=== PATIENT | female | born 1965 | race Caucasian/White ===

== ENCOUNTER → 2017-03-09 | Outpatient (CLI) | payer OTHER ==
[~2017-03-09] MED LIST: GADOBUTROL 10 ML VIAL IVP ONE
== END ==
LOC: FIMAGING 07:58
PROVIDERS: ATTEND Internal Medicine Gastroenterology
DX: Z03.89 Encounter for observation for other suspected diseases and conditions ruled out (principal)
CPT/HCPCS: A9585

== ENCOUNTER 2017-07-01 17:37 | Emergency (ER) | payer OTHER ==
--- NOTE | 2017-07-01 18:44 | EDPHY ---
H & P Time Seen by Provider: 07/01/17 18:08 HPI/ROS: CHIEF COMPLAINT: "Allergic reaction" HISTORY OF PRESENT ILLNESS: The patient is a 51-year-old female with significant autoimmune disorder who presents to the emergency department with reported reaction to IGG. The patient normally receives an infusion every 3 weeks. Patient states she underwent an infusion of IGG yesterday and had been roughly 5-6 weeks. About 15 minutes after the infusion she developed chills. Her fever went to 101.4. She developed significant diffuse body aches. She took ibuprofen and her symptoms improved. This afternoon she developed a rash around her neck and face. She again developed chills and body aches. She called the nurse for her [place] program [place] who told her come to the emergency department for evaluation. She denies any chest pain or shortness of breath. No nausea or vomiting. No dysuria or frequency. Patient has that she has recently been treated for herpes infection in her mouth and eye. She saw Dr. Dent who recommended treatment with acyclovir. Since that time she has been feeling "crummy." The patient also states that she has an appointment with Dr. Rodgers tomorrow. REVIEW OF SYSTEMS: My complete review of systems is negative except as mentioned in the HPI. Past Medical/Surgical History: Includes autoimmune disorder, pancreatitis, kidney stones, traumatic brain injury Social history: The patient is here with her who is an orthopedic surgeon, Dr. Elizabeth. Smoking Status: Never smoked Physical Exam: Vitals noted. 37.5, 146/86, 60, 20, 95% on room air GENERAL: Well-appearing, in no acute distress, alert. HEENT: Eyes normal to inspection, normal pharynx, no signs of dehydration. No discharge NECK: No thyromegaly, no lymphadenopathy, supple. RESPIRATORY: Clear to auscultation bilaterally, no rales, rhonchi or wheezing. CVS: Regular rate and rhythm, no rubs, murmurs, or gallops. ABDOMEN: Soft, nontender, nondistended, no organomegaly. BACK: Normal to inspection, no CVA tenderness. SKIN: Patient has an erythematous rash around her neck and anterior chest. She is mildly erythematous face. It is nontender to touch. There are no visible ulcerations. No hives. Warm, dry. No pallor. EXTREMITIES: No pedal edema, no calf tenderness, no Homans sign or cords, no joint swelling. NEURO/PSYCH: Alert and oriented, normal mood and affect, normal motor sensory exam. No obvious cranial nerve deficit. Constitutional: Initial Vital Signs Temperature (C) 37.5 C 07/01/17 17:52 Heart Rate 60 07/01/17 17:52 Respiratory Rate 20 07/01/17 17:52 Blood Pressure 146/86 H 07/01/17 17:52 O2 Sat (%) 95 07/01/17 17:52 O2 Delivery Mode Room Air Allergies/Adverse Reactions: seasonal Allergy (Intermediate, Uncoded 07/01/17 17:51) hayfever Home Medications: Medication Instructions Recorded Levothyroxine [Synthroid 112 mcg 112 mcg PO DAILY06 06/21/12 (RX)] Liothyronine Sodium [Cytomel 5 mcg 5 mcg PO DAILY 06/21/12 (RX)] Propranolol HCl [Inderal 10mg (RX)] 10 - 20 mg PO TID PRN 06/21/12 lamoTRIgine [LamICTAL 100 MG (RX)] 300 mg PO BID 06/21/12 Medical Decision Making ED Course/Re-evaluation: In the emergency department I discussed possible etiologies with the patient and her . I answered all her questions. IV was placed. Laboratory studies including cultures were obtained. Patient does not have any respiratory symptoms. I do not feel she needed a chest x-ray. CBC, chemistry and LFTs were normal. I discussed the results with the patient. I answered all her questions. 2010: I rechecked the patient is doing well. No worsening rash. No shortness of breath. The patient feels comfortable with discharge. She will return with worsening symptoms. She was given warnings prior to leaving. She has an appointment with Dr. Rodgers tomorrow. Differential Diagnosis: My differential includes but is not limited to allergic reaction, autoimmune disorder, herpes infection, bacteremia, sepsis - Data Points Laboratory Results: Laboratory Results 07/01/17 18:55 07/01/17 18:55 07/01/17 07/01/17 07/01/17 19:43 18:55 18:55 WBC RBC Hgb Hct MCV MCH MCHC RDW Plt Count MPV Neut % (Auto) Lymph % (Auto) [place] % (Auto) Eos % (Auto) Baso % (Auto) Nucleat RBC Rel Count Absolute Neuts (auto) Absolute Lymphs (auto) Absolute Monos (auto) Absolute Eos (auto) Absolute Basos (auto) Absolute Nucleated RBC Immature Gran % Immature Gran # PT 13.2 SEC SEC (12.0-15.0) INR 1.01 (0.83-1.16) APTT 24.1 SEC SEC (23.0-38.0) Sodium 140 mEq/L mEq/L (134-144) Potassium 4.0 mEq/L mEq/L (3.5-5.2) Chloride 107 mEq/L mEq/L (97-110) Carbon Dioxide 22 mEq/l mEq/l (22-31) Anion Gap 11 mEq/L mEq/L (8-16) BUN 16 mg/dL mg/dL (7-23) Creatinine 0.8 mg/dL mg/dL (0.6-1.0) Estimated GFR > 60 Glucose 84 mg/dL mg/dL (70-100) Calcium 9.3 mg/dL mg/dL (8.5-10.4) Total Bilirubin 0.7 mg/dL mg/dL (0.1-1.4) Conjugated Bilirubin 0.2 mg/dL mg/dL (0.0-0.5) Unconjugated Bilirubin 0.5 mg/dL mg/dL (0.0-1.1) AST 32 IU/L IU/L (14-46) ALT 43 IU/L IU/L (9-52) Alkaline Phosphatase 67 IU/L IU/L (38-126) Total Protein 7.9 g/dL g/dL (6.3-8.2) Albumin 4.2 g/dL g/dL (3.5-5.0) Lipase 34 IU/L IU/L (23-300) Urine Color PALE YELLOW Urine Appearance CLEAR Urine pH 5.0 (5.0-7.5) Ur Specific [place] 1.013 (1.002-1.030) Urine Protein NEGATIVE (NEGATIVE) Urine Ketones NEGATIVE (NEGATIVE) Urine Blood 1+ H (NEGATIVE) Urine Nitrate NEGATIVE (NEGATIVE) Urine Bilirubin NEGATIVE (NEGATIVE) Urine Urobilinogen NEGATIVE EU EU (0.2-1.0) Ur Leukocyte Esterase NEGATIVE (NEGATIVE) Urine RBC 1-3 /hpf /hpf (0-3) Urine WBC 1-3 /hpf /hpf (0-3) Ur Epithelial Cells TRACE /lpf /lpf (NONE-1+) Urine Glucose NEGATIVE (NEGATIVE) 07/01/17 18:55 WBC 4.60 10^3/uL 10^3/uL (3.80-9.50) RBC 3.99 10^6/uL L 10^6/uL (4.18-5.33) Hgb 12.7 g/dL g/dL (12.6-16.3) Hct 37.9 % L % (38.0-47.0) MCV 95.0 fL fL (81.5-99.8) MCH 31.8 pg pg (27.9-34.1) MCHC 33.5 g/dL g/dL (32.4-36.7) RDW 12.0 % % (11.5-15.2) Plt Count 259 10^3/uL 10^3/uL (150-400) MPV 8.7 fL fL (8.7-11.7) Neut % (Auto) 43.3 % % (39.3-74.2) Lymph % (Auto) 42.8 % % (15.0-45.0) [place] % (Auto) 9.3 % % (4.5-13.0) Eos % (Auto) 3.5 % % (0.6-7.6) Baso % (Auto) 0.9 % % (0.3-1.7) Nucleat RBC Rel Count 0.0 % % (0.0-0.2) Absolute Neuts (auto) 1.99 10^3/uL 10^3/uL (1.70-6.50) Absolute Lymphs (auto) 1.97 10^3/uL 10^3/uL (1.00-3.00) Absolute Monos (auto) 0.43 10^3/uL 10^3/uL (0.30-0.80) Absolute Eos (auto) 0.16 10^3/uL 10^3/uL (0.03-0.40) Absolute Basos (auto) 0.04 10^3/uL 10^3/uL (0.02-0.10) Absolute Nucleated RBC 0.00 10^3/uL 10^3/uL (0-0.01) Immature Gran % 0.2 % % (0.0-1.1) Immature Gran # 0.01 10^3/uL 10^3/uL (0.00-0.10) PT INR APTT Sodium Potassium Chloride Carbon Dioxide Anion Gap BUN Creatinine Estimated GFR Glucose Calcium Total Bilirubin Conjugated Bilirubin Unconjugated Bilirubin AST ALT Alkaline Phosphatase Total Protein Albumin Lipase Urine Color Urine Appearance Urine pH Ur Specific [place] Urine Protein Urine Ketones Urine Blood Urine Nitrate Urine Bilirubin Urine Urobilinogen Ur Leukocyte Esterase Urine RBC Urine WBC Ur Epithelial Cells Urine Glucose Departure - Departure Disposition: Home, Routine, Self-Care Clinical Impression: Rash Fever Qualifiers: Fever type: unspecified Qualified Code(s): R50.9 - Fever, unspecified Condition: Good Instructions: Fever in Adults (ED), Acute Rash (ED) Additional Instructions: Return with increasing rash, shortness of breath, chest pain, persistent fever, vomiting or any other concerns. Referrals: Bee Rodgers MD [Primary Care Provider] - 1 day without fail
[2017-07-01 19:06] LABS: % IMMATURE GRANULYOCYTES 0.2 % (0.0-1.1); ABSOLUTE IMMATURE GRANULOCYTES 0.01 10^3/uL (0.00-0.10); ADD DIFF? NO; ADD MORPH? NO; ADD SCAN? NO; ATYPICAL LYMPHOCYTE FLAG 0 (0-99); FRAGMENT RBC FLAG 0 (0-99); HEMATOCRIT 37.9 % (38.0-47.0); HEMOGLOBIN 12.7 g/dL (12.6-16.3); LEFT SHIFT FLG 0 (0-99); LIPEMIA HEMOLYSIS FLAG 80 (0-99); MEAN CELL HEMOGLOBIN 31.8 pg (27.9-34.1); MEAN CELL HEMOGLOBIN CONCENTR. 33.5 g/dL (32.4-36.7); MEAN PLATELET VOLUME 8.7 fL (8.7-11.7); PLATELET CLUMPS FLAG 10 (0-99); PLATELET COUNT 259 10^3/uL (150-400); RED BLOOD CELL COUNT 3.99 10^6/uL (4.18-5.33)
[2017-07-01 19:25] LABS: INR 1.01 (0.83-1.16); PROTIME(PATIENT) 13.2 SEC (12.0-15.0)
[2017-07-01 19:26] LABS: APTT 24.1 SEC (23.0-38.0)
[2017-07-01 19:28] LABS: ALANINE AMINOTRANSFERASE 43 IU/L (9-52); ALBUMIN 4.2 g/dL (3.5-5.0); ALKALINE PHOSPHATASE 67 IU/L (38-126); ANION GAP 11 mEq/L (8-16); ASPARTATE AMINOTRANSFERASE 32 IU/L (14-46); BILIRUBIN,TOTAL 0.7 mg/dL (0.1-1.4); BILIRUBIN-CONJUGATED 0.2 mg/dL (0.0-0.5); BILIRUBIN-UNCONJUGATED 0.5 mg/dL (0.0-1.1); CALCIUM 9.3 mg/dL (8.5-10.4); CARBON DIOXIDE 22 mEq/l (22-31); CHLORIDE 107 mEq/L (97-110); CREATININE 0.8 mg/dL (0.6-1.0); GLOMERULAR FILTRATION RATE > 60; GLUCOSE 84 mg/dL (70-100); SODIUM 140 mEq/L (134-144); TOTAL PROTEIN 7.9 g/dL (6.3-8.2)
[2017-07-01 19:59] LABS: COLOR PALE YELLOW; LEUKOCYTE ESTERASE,URINE NEGATIVE (NEGATIVE); NITRITE,URINE NEGATIVE (NEGATIVE)
[2017-07-01 20:29] VITALS: BP 111/67; PULSE 61; RESP 16; TEMP 98.2; O2SAT 96
== END 2017-07-01 20:28 | disposition home or self-care (01) ==
DX: R21 Rash and other nonspecific skin eruption (principal); R50.9 Fever, unspecified

== ENCOUNTER 2017-07-02 11:16 | Inpatient (IN) | payer OTHER ==
--- NOTE | 2017-07-02 13:38 | EDPHY ---
H & P Time Seen by Provider: 07/02/17 13:37 HPI/ROS: Chief complaint. Fever, rash, joint pain HPI. A 51-year-old female with history of hypogammaglobulinemia receiving monthly IVIG repletion and daily acyclovir. Over the last 2 weeks she has had increased rash. She apparently had herpes IP outbreak despite taking acyclovir daily. She had what she thought was a stye in her eye and saw scrap baler who diagnosed a herpes on the inner lower eyelid. She then developed herpes rashes inner ear and nose. She had an IVIG infusion 2 days ago and then subsequently had fever to 101 degrees. She has had headache and increasing rash about the face and neck she has been seen by Ophthalmology and has had her acyclovir doses increased. She has been seen by infectious Disease who recommended evaluation in the emergency department including HSV PCR head and swabs of any facial lesions and then admission for IV acyclovir. No fever today. ROS Constitutional. Fever 2 days ago Eyes. no problems with vision ENT. no sore throat, no nasal drainage Cardiovascular. no chest pain Respiratory. no shortness of breath, no cough Abdominal. no abdominal pain, no nausea/vomiting, no diarrhea . no problems urinating MS. no calf pain/swelling, no neck/back pain, no joint pain Skin. Rash Lymph. no swollen glands Neuro. Headache Past Medical/Surgical History: Past medical history significant for autoimmune disease including hypogammaglobulinemia, pancreatitis, kidney stones, TBI Social History: , nonsmoker, no alcohol Smoking Status: Never smoked Physical Exam: General Appearance: Alert well-developed female moderate distress vital signs are stable Eyes: Pupils equal and round no pallor or injection. Possible slight redness on the inner lower right eyelid ENT, Mouth: Mucous membranes are moist. Ears are normal. Nose is normal. No lesions noted Respiratory: There are no retractions, lungs are clear to auscultation. Cardiovascular: Regular rate and rhythm. Gastrointestinal: Abdomen is soft and nontender, no masses, bowel sounds normal. Neurological: Awake and alert, sensory and motor exams grossly normal. Skin: Warm and dry, no rashes. Erythema about the face and neck but no typical lesions of herpes or zoster Musculoskeletal: Neck is supple nontender. Extremities symmetrical, full range of motion. Psychiatric: Patient is oriented X 3, there is no agitation. Constitutional: Initial Vital Signs Temperature (C) 36.7 C 07/02/17 11:29 Heart Rate 64 07/02/17 11:29 Respiratory Rate 18 07/02/17 11:29 Blood Pressure 107/85 H 07/02/17 11:29 O2 Sat (%) 98 07/02/17 11:29 O2 Delivery Mode Room Air Allergies/Adverse Reactions: seasonal Allergy (Intermediate, Uncoded 07/02/17 11:28) hayfever Home Medications: Medication Instructions Recorded Levothyroxine [Synthroid 112 mcg 112 mcg PO DAILY06 06/21/12 (RX)] Liothyronine Sodium [Cytomel 5 mcg 5 mcg PO DAILY 06/21/12 (RX)] ALPRAZolam [Xanax 1 MG (*)] 1 mg PO HS PRN 07/02/17 Acyclovir [Acyclovir] 400 mg PO DAILY 07/02/17 Amphet Asp and D/Amphet [Adderall 10 mg PO 08,1500 PRN 07/02/17 10 MG (*)] Melatonin [Melatonin 3 MG (*)] 3 mg PO HS 07/02/17 Progesterone, Micronized 200 mg PO HS 07/02/17 [Progesterone] Propranolol HCl [Inderal 10mg (*)] 10 - 20 mg PO TID PRN 07/02/17 busPIRone [Buspar (*)] 15 mg PO BID 07/02/17 lamOTRIGine [Lamotrigine] 150 mg PO DAILY 07/02/17 Medical Decision Making Procedures: IV normal saline. Morphine for pain, ibuprofen, Zofran ED Course/Re-evaluation: Consulted discussed case Dr. Moyer who recommends admission and IV acyclovir On re-evaluation patient is stable. She and I discussed treatment plan including recommendation for admission for further evaluation and treatment. She expresses understanding and agreement Patient is given IV acyclovir at 10 milligrams/kilogram. I consulted and discussed case with Dr. Soto, hospitalist, who agrees to the admission. He sees the patient while she is in the emergency department Differential Diagnosis: This appears to be disseminated herpes infection. This may also be other autoimmune infection. - Data Points Laboratory Results: Laboratory Results 07/02/17 14:06 07/02/17 14:06 Medications Given: Acetaminophen (Tylenol) 650 mg PO Q4HRS PRN PRN Reason: Pain, Mild/Fever, Can Take PO Stop: 12/29/17 16:07 Last Admin: 07/03/17 15:26 Dose: 650 mg Alprazolam (Xanax) 1 mg PO HS PRN PRN Reason: insomnia Stop: 12/29/17 16:59 Last Admin: 07/03/17 16:04 Dose: 1 mg Buspirone HCl (Buspar) 15 mg PO BID MESSI Stop: 12/29/17 20:59 Last Admin: 07/04/17 08:18 Dose: 15 mg Enoxaparin Sodium (Lovenox) 40 mg SC DAILY MESSI Stop: 12/30/17 08:59 Last Admin: 07/04/17 08:18 Dose: Not Given Hydromorphone HCl (Dilaudid) 2 - 4 mg PO Q4HRS PRN PRN Reason: Pain, Severe Able to Take PO Stop: 07/13/17 10:03 Last Admin: 07/04/17 05:43 Dose: 4 mg Hydromorphone HCl (Dilaudid) 0.2 - 1 mg IVP Q2HRS PRN PRN Reason: Pain, Severe Unable to Take PO Stop: 07/13/17 17:57 Last Admin: 07/04/17 08:17 Dose: 1 mg Acyclovir 750 mg/ Dextrose 265 mls @ 250 mls/hr IV Q8HRS [facility] Stop: 08/01/17 22:59 Last Admin: 07/04/17 05:44 Dose: 265 mls Ketorolac Tromethamine (Toradol) 15 mg IVP Q8HRS PRN PRN Reason: Pain, Breakthrough Stop: 07/08/17 05:59 Last Admin: 07/04/17 01:58 Dose: 15 mg Lamotrigine (Lamictal) 150 mg PO DAILY MESSI Stop: 12/30/17 08:59 Last Admin: 07/04/17 08:18 Dose: 150 mg Levothyroxine Sodium (Synthroid) 112 mcg PO DAILY06 [facility] Stop: 12/30/17 05:59 Last Admin: 07/04/17 05:44 Dose: 112 mcg Liothyronine Sodium (Cytomel) 5 mcg PO DAILY MESSI Stop: 12/30/17 08:59 Last Admin: 07/04/17 08:18 Dose: 5 mcg Lorazepam (Ativan) 1 mg PO Q6HRS PRN PRN Reason: Spasms Stop: 12/30/17 05:15 Last Admin: 07/03/17 15:26 Dose: 1 mg Melatonin (Melatonin) 3 mg PO HS [facility] Stop: 12/29/17 20:59 Last Admin: 07/03/17 21:01 Dose: 3 mg Ondansetron HCl (Zofran) 4 mg IVP Q4HRS PRN PRN Reason: Nausea/Vomiting, Can't Take PO Stop: 12/29/17 16:07 Last Admin: 07/03/17 21:00 Dose: 4 mg Progesterone (Prometrium) 200 mg PO HS [facility] Stop: 12/29/17 20:59 Last Admin: 07/03/17 21:00 Dose: 200 mg Sumatriptan Succinate (Imitrex) 25 mg PO Q6 PRN PRN Reason: Headache Stop: 12/30/17 10:03 Last Admin: 07/04/17 05:44 Dose: 25 mg Discontinued Medications Acyclovir 750 mg/ Dextrose 265 mls @ 250 mls/hr IV Q8HRS [facility] Stop: 08/01/17 14:59 Last Admin: 07/02/17 18:01 Dose: Not Given Acyclovir 750 mg/ Dextrose 265 mls @ 250 mls/hr IV EDNOW ONE Stop: 07/02/17 16:33 Last Admin: 07/02/17 16:02 Dose: 265 mls Ibuprofen (Motrin) 600 mg PO EDNOW ONE Stop: 07/02/17 14:06 Last Admin: 07/02/17 14:15 Dose: Not Given Ketorolac Tromethamine (Toradol) 30 mg IVP EDNOW ONE Stop: 07/02/17 14:08 Last Admin: 07/02/17 14:14 Dose: 30 mg Morphine Sulfate (Morphine) 6 mg IVP EDNOW ONE Stop: 07/02/17 14:08 Last Admin: 07/02/17 14:28 Dose: Not Given Morphine Sulfate (Morphine) 6 mg IVP EDNOW ONE Stop: 07/02/17 14:29 Last Admin: 07/02/17 14:32 Dose: 6 mg Morphine Sulfate (Morphine) 6 mg IVP Q4HRS PRN PRN Reason: Pain, Severe Unable to Take PO Stop: 07/12/17 16:54 Last Admin: 07/03/17 08:18 Dose: 6 mg Morphine Sulfate (Morphine) 4 mg IVP EDNOW ONE Stop: 07/02/17 17:12 Last Admin: 07/02/17 17:22 Dose: 4 mg Ondansetron HCl (Zofran) 4 mg IVP EDNOW ONE Stop: 07/02/17 14:06 Last Admin: 07/02/17 14:13 Dose: 4 mg Ondansetron HCl (Zofran) 4 mg IVP EDNOW ONE Stop: 07/02/17 14:08 Last Admin: 07/02/17 14:15 Dose: Not Given Ondansetron HCl (Zofran) 4 mg IVP ONCE ONE Stop: 07/02/17 17:12 Last Admin: 07/02/17 18:00 Dose: Not Given Prednisone (Prednisone) 40 mg PO DAILY [facility]I Stop: 12/30/17 14:14 Last Admin: 07/03/17 18:22 Dose: 40 mg Sumatriptan Succinate (Imitrex) 25 mg PO ONCE ONE Stop: 07/03/17 03:46 Last Admin: 07/03/17 04:02 Dose: 25 mg Departure - Departure Disposition: [facility] Acute Clinical Impression: Rash Condition: Fair
[2017-07-02] MEDS ORDERED: ONDANSETRON 4 MG/2 ML VIAL IVP ONE ×3 (14:05→17:11)
[2017-07-02] MEDS ORDERED: IBUPROFEN 600 MG TAB PO ONE (14:05)
[2017-07-02] MEDS ORDERED: KETOROLAC 30 MG/1 ML SDV IVP ONE (14:07)
[2017-07-02 14:23] LABS: % IMMATURE GRANULYOCYTES 0.2 % (0.0-1.1); ABSOLUTE IMMATURE GRANULOCYTES 0.01 10^3/uL (0.00-0.10); ADD DIFF? NO; ADD MORPH? NO; ADD SCAN? NO; ATYPICAL LYMPHOCYTE FLAG 20 (0-99); FRAGMENT RBC FLAG 0 (0-99); HEMOGLOBIN 13.4 g/dL (12.6-16.3); LEFT SHIFT FLG 0 (0-99); LIPEMIA HEMOLYSIS FLAG 80 (0-99); MEAN CELL HEMOGLOBIN CONCENTR. 33.5 g/dL (32.4-36.7); MEAN CELL VOLUME 95.5 fL (81.5-99.8); MEAN PLATELET VOLUME 8.8 fL (8.7-11.7); PLATELET CLUMPS FLAG 0 (0-99); PLATELET COUNT 282 10^3/uL (150-400); RED BLOOD CELL COUNT 4.19 10^6/uL (4.18-5.33); RED CELL DISTRIBUTION WIDTH 11.9 % (11.5-15.2)
[2017-07-02 14:50] LABS: ANION GAP 13 mEq/L (8-16); CALCIUM 9.7 mg/dL (8.5-10.4); CARBON DIOXIDE 23 mEq/l (22-31); CHLORIDE 105 mEq/L (97-110); CREATININE 0.7 mg/dL (0.6-1.0); GLOMERULAR FILTRATION RATE > 60; GLUCOSE 86 mg/dL (70-100); POTASSIUM 4.3 mEq/L (3.5-5.2); SODIUM 141 mEq/L (134-144)
[2017-07-02] MEDS ORDERED: ACYCLOVIR 750 MG in D5W 250 ML IV SCH (15:00)
[2017-07-02] MEDS ORDERED: ACYCLOVIR 750 MG in D5W 250 ML IV ONE (15:30)
[2017-07-02] MEDS ORDERED: ONDANSETRON DISINTEGRATING 4 MG TAB PO PRN (16:08)
[2017-07-02] MEDS ORDERED: ACETAMINOPHEN 325 MG TAB PO PRN (16:08)
--- NOTE | 2017-07-02 16:15 | PDGENHP ---
History and Physical History and Physical: HISTORY AND PHYSICAL CC: Fever rash and diffuse pains HISTORY: Ms. Jones comes to the emergency room today with ongoing symptoms of fever, diffuse pains, and mucosal ulcerations. 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 This current syndrome seemed to start at least a month ago when she started feeling fatigue, diffuse aches including headaches mild muscle aches , and a sense of impending acute illness. There may have been actually in earlier syndrome word not long before this she had had surgery on her right shoulder and subsequently developed unexpected pain and swelling with if fluid collection. There had not been evidence of infection. Over the past month she has had in addition numerous the symptoms that have included 3 rounds of vaginal yeast infection each treated successfully with Diflucan although requiring for 1 of them 3 days, multiple episodes of diffuse and severely painful oral ulcerations which all have resolved at this point. For 2 of these episodes she increased her usual daily dose of acyclovir for a few days and at least timing benson the ulcerations resolved potentially consistent with the acyclovir treating the ulcerations. She also had an inflammatory lesion on the inside of her right low lower eyelid during 1 of these episodes of oral ulcerations. This also was quite painful and did resolve. There were no viral cultures taken from any of her oral, eyelid, or accompanying intra nasal sores. Over the last couple weeks she has had gradually worsening diffuse myalgias and arthralgias and some bad headaches as well. 2 days ago she received her usual IgG infusion and on the way home just around 20 minutes or so after completing the infusion had onset of crushing pain throughout her skeleton, diffuse severe myalgias and much worse headache and fever of 101.4. This was accompanied by a facial rash that was bright red and painful but not if she without any crusting or blistering. It also went on to her neck. She shows me photos of this rash and is with a fairly serpiginous outline including the malodor bridge and cheeks and then down to the chin and across particularly the left side of her neck and crossing over the left collar bone to the upper chest. It is bright red and very even in color and confluent. She says since then this rash and fever symptoms accompanied by diffuse pain have come and gone several times. At 1 point she also had rash on her palms and flexor surface of fingers. Again she shows me a photo of this and it is composed of numerous macular erythematous lesions without rings blisters crusting. These lesions appear to be approximately 1-1 1/2 cm in diameter. There have been no changes in vision, no neurologic symptoms, no respiratory symptoms and other than nasal mucosal discomfort, chest or abdominal pain, nausea vomiting, diarrhea, bleeding or bruising or urinary symptoms. The patient has a long history of recurrent autoimmune symptoms of fluctuating nature over time. She has had 2 episodes of pseudotumor cerebri, a syndrome highly suggestive of lupus, an illness that looks like but showed syndrome and actually met diagnostic criteria for patient syndrome though her publicity expert Dr. 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 There is also a significant family history of autoimmune diseases ROS: A comprehensive 10 system review revealed no other significant findings PAST MEDICAL HISTORY: Please see the list of autoimmune issues that the patient has had suffered above Cholecystectomy The acute pancreatitis with cholecystitis E Appendectomy Closed head injury with concussion and postconcussive syndrome Hypothyroidism section Breast augmentation and abdominoplasty Some chronic sinusitis FAMILY MEDICAL HISTORY: A number of various autoimmune syndromes SOCIAL HISTORY: She is to Dr. Elizabeth 1 of our orthopedist here at this hospital. 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 At this time she is quite debilitated by her ongoing symptoms as described above. He does not use tobacco or street drugs MEDICATIONS: The patients list has been reconciled by our clinical pharmacist in the EMR. I have reviewed the list and ordered appropriate medicines. PHYSICAL EXAMINATION: Vital Signs: Stable without fever Examination: General: alert, oriented, good mentation, mildly anxious as would be expected with this illness Skin: warm, dry, with some mild erythema over the midportion of her face onto the left cheek, not nearly as intense as what she showed me in the photographs from home No adenopathy HEENT: normal including fundus oral mucosal on nasal exam is Neck: no mass or jvd Resps: relaxed Lungs: clear breath sounds Heart: regular, no murmur Abdomen: soft, nondistended, nontender, +BS, no mass Upper Extremities: normal Lower Extremities: no edema, warm No Bleeding or bruising, no petechiae Neurologic: normal speech/language, normal pulp mixer, no focal weakness IV site: looks normal LABORATORY DATA: CBC and basic met panel are unremarkable RADIOLOGY STUDIES: A chest x-ray was done in the ER and I reviewed the images, my interpretation: Normal chest x-ray ASSESSMENT: # 1 month of acute inflammatory syndrome worsening over time, including fever, facial and neck rash, palmar rash with the rashes coming and going in for bleeding episodes, myalgias arthralgias and bone pain, recurrent aphthous ulcerations of the oral and eyelid mucosa, headache with some photophobia but not a stiff neck on examination, and a long history of autoimmune illnesses some of which are clearly defined such as her pseudotumor cerebri, but otherwise with features overlapping several syndromes as discussed above and so 1 definitive diagnosis never arrived at # 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 I am actually thinking these are more likely autoimmune ulcerations but we did not have cultures or biopsies of any of the source to go on and those are currently healed. In addition as she did have some eyelid sore she was seen by an biomedical engineering internship who did examined and determined that she did not have any corneal lesions # recurrent episodes of yeast vaginitis during all of the above, responded to Diflucan and currently asymptomatic At this time the differential diagnosis I would consider could include a serum sickness reaction to her gammaglobulin, a flare of lupus, a flare of but showed syndrome, or with her nasal pain even a vasculitis syndrome with some atypical features, and again the question of whether there or actually active herpetic lesions are not in the setting of immune deficiency. It may be fairly difficult to sort this out diagnostically and I have placed calls to review with her publicity expert Dr. Diez and her granite sandblaster apprentice Dr. Rodgers and will request consultation from them. At Dr. Dmitri Moyer of the Infectious Disease team has been notified and he will be seeing her as well. Dr. Moyer has recommended that we use IV acyclovir in the off chance PLANS: -IV acyclovir for now -begin some serologic testing -rheum, allergy, and ID consults -pain and nausea management I have reviewed the patient's case in detail with Dr. Gelacio Frazier, Dr Bee Rodgers, and will review w Dr Medina as well I have reviewed the patient's past medical records as part of this assessment, including previous hospital and clinic records, recent imaging studies
[2017-07-02] MEDS ORDERED: ADDERALL 10 MG TAB PO PRN (17:00)
[2017-07-02] MEDS ORDERED: ALPRAZolam 1 MG TAB PO PRN (17:00)
[2017-07-02] MEDS ORDERED: PROPRANOLOL HCL 10 MG TAB PO PRN (17:00)
[2017-07-02] MEDS: ONDANSETRON 4 MG/2 ML VIAL IVP PRN ×2 (17:22→21:13)
[2017-07-02] MEDS: PROGESTERONE,MICR 100 MG CAP PO SCH (21:54)
[2017-07-02] MEDS: MELATONIN 3 MG TAB PO SCH (21:54)
[2017-07-02] MEDS: busPIRone 15 MG TAB PO SCH (21:54)
[2017-07-02] MEDS: ACYCLOVIR 750 MG in D5W 250 ML IV SCH (23:03)
[2017-07-03] MEDS: KETOROLAC 15 MG/1 ML SDV IVP PRN ×2 (00:38→13:28)
[2017-07-03] MEDS: ONDANSETRON 4 MG/2 ML VIAL IVP PRN ×3 (02:55→21:00)
[2017-07-03] MEDS ORDERED: SUMAtriptan 25 MG TAB PO ONE (03:45)
[2017-07-03 05:06] LABS: % IMMATURE GRANULYOCYTES 0.2 % (0.0-1.1); ABSOLUTE IMMATURE GRANULOCYTES 0.01 10^3/uL (0.00-0.10); ADD DIFF? NO; ADD MORPH? NO; ADD SCAN? NO; ATYPICAL LYMPHOCYTE FLAG 10 (0-99); FRAGMENT RBC FLAG 0 (0-99); HEMATOCRIT 41.4 % (38.0-47.0); HEMOGLOBIN 13.6 g/dL (12.6-16.3); LEFT SHIFT FLG 0 (0-99); LIPEMIA HEMOLYSIS FLAG 80 (0-99); MEAN CELL HEMOGLOBIN 31.9 pg (27.9-34.1); MEAN CELL HEMOGLOBIN CONCENTR. 32.9 g/dL (32.4-36.7); MEAN CELL VOLUME 97.2 fL (81.5-99.8); MEAN PLATELET VOLUME 8.9 fL (8.7-11.7); PLATELET CLUMPS FLAG 20 (0-99); PLATELET COUNT 234 10^3/uL (150-400); RED BLOOD CELL COUNT 4.26 10^6/uL (4.18-5.33); RED CELL DISTRIBUTION WIDTH 11.9 % (11.5-15.2)
[2017-07-03 05:27] LABS: ALANINE AMINOTRANSFERASE 33 IU/L (9-52); ALBUMIN 3.9 g/dL (3.5-5.0); ALKALINE PHOSPHATASE 61 IU/L (38-126); ANION GAP 11 mEq/L (8-16); ASPARTATE AMINOTRANSFERASE 26 IU/L (14-46); BILIRUBIN,TOTAL 0.7 mg/dL (0.1-1.4); CALCIUM 8.9 mg/dL (8.5-10.4); CARBON DIOXIDE 21 mEq/l (22-31); CHLORIDE 108 mEq/L (97-110); CREATININE 0.7 mg/dL (0.6-1.0); GLOMERULAR FILTRATION RATE > 60; GLUCOSE 108 mg/dL (70-100); MAGNESIUM 1.7 mg/dL (1.6-2.3); POTASSIUM 4.1 mEq/L (3.5-5.2); SODIUM 140 mEq/L (134-144); TOTAL PROTEIN 7.3 g/dL (6.3-8.2)
[2017-07-03] MEDS: LORazepam 1 MG TAB PO PRN ×2 (05:35→15:26)
[2017-07-03] MEDS: LEVOTHYROXINE 112 MCG TAB PO SCH (05:35)
[2017-07-03] MEDS: ACYCLOVIR 750 MG in D5W 250 ML IV SCH ×3 (05:36→21:01)
[2017-07-03] MEDS: LIOTHYRONINE SODIUM 5 MCG TAB PO SCH (08:19)
[2017-07-03] MEDS: lamoTRIgine 100 MG TAB PO SCH ×2 (08:19→11:37)
--- NOTE | 2017-07-03 09:09 | GCON ---
[f rep st] CONSULTATION RHEUMATOLOGY CONSULTATION NOTE DATE OF CONSULTATION: 07/03/2017 REQUESTING PHYSICIAN: Jimbo Soto MD. REASON FOR CONSULTATION: Evaluate for autoimmune disease. HISTORY OF PRESENT ILLNESS: The patient is a very pleasant 51-year-old female with a history of CVID , admitted for severe headache, rash, oral ulcerations, muscle and joint pain. She reports that she has had immunodeficiency for many years and has been on IVID therapy for approximately the last 6 yea rs. In general, she does fairly well with this treatment, with the occasional headache. Infections were dramatically decreased once she started receiving immunoglobulin infusions routinely. Over the last 6 weeks, she has not felt very well. She has had more body pain. In addition, she has had 3 ep isodes of oral ulcerations, which she attributed to recurrent herpes. She had been taking acyclovir for this, but had repeated episodes despite the use of acyclovir. In addition, she had a lesion on t he eye, which became quite swollen at one time. This also was attributed to probable herpes infectio n. Also, in the past 6 weeks, she had a vaginal yeast infection, which required 3 dosages of flucona zole to control. She has had more body achiness in general over the past month associated with worse alberto fatigue. She has had some mild headaches following her most recent immunoglobulin infusion, sulema roximately 2-3 days ago. She developed much worsening headache, which has been quite severe in addit ion to rash, fevers greater than 101, and severe bone and joint pain. Because of the severity of jeannette n, she was seen by her bushwalking guide, and subsequently referred to the emergency room because of the forrest rity of her symptoms. Her rash, when present, has effected the face and neck regions. In addition, for the last several years, she will have periodic flare ups of this rash, either effecting the face or the hands. This is usually associated with pain, rather than itching. The symptoms can subside w ithin a matter of days. She has tried various withdrawal of skin creams, and other potential contact substances without any improvement in her rash. She had been evaluated previously by myself in [facility] for possible autoimmune disease. This has been associated with concerns about the recurrent mouth sores, joint pains and fatigue. She has not been given any definitive autoimmune diagnosis by rheumatology despite these symptoms. In a remote history, she has had other issues, such as pseudot umor cerebri on several occasions. There is a family history of autoimmune disease including things such as rheumatoid arthritis, and multiple sclerosis. The father's side had psoriasis. PAST MEDICAL HISTORY: Includes CVID, cholecystectomy, appendectomy, pancreatitis, closed head injury , hypothyroidism, section, breast augmentation, and abdominoplasty. Prior problems with chr onic sinusitis. Recent right shoulder surgery for rotator cuff repair. FAMILY HISTORY: Uncle with multiple sclerosis, uncle with rheumatoid arthritis, father psoriasis. SOCIAL HISTORY: She is . 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 No significant tobacco o r illicit drug use. She has children. MEDICATIONS: Presently include acetaminophen, Adderall, BuSpar, Lamictal, levothyroxine, Cytomel, pr ogesterone, propranolol as needed. In the hospitalization, she has also had morphine, Toradol, and I mitrex. ALLERGIES: No known drug allergies. PHYSICAL EXAMINATION: VITAL SIGNS: Blood pressure of 96/63, heart rate of 67, respiratory rate of 1 6, temperature of 37.0, she had been afebrile during hospitalizations. GENERAL: She appears to be i n a lot of discomfort, just lying in bed. Appears not to want to move her neck at all. HEENT: Conj unctivae are clear. No nasal lesions. No oral lesions noted presently. No oral ulcerations or ulce rations on the lips. NECK: No lymphadenopathy. No thyromegaly. She is protecting with movement of her neck. CHEST: Clear. CARDIOVASCULAR: Normal heart rate. Normal sinus rhythm. ABDOMEN: Soft and nontender. EXTREMITIES: No edema. SKIN: No significant rash presently. MUSCULOSKELETAL: Sophia romero has generalized tenderness of her tissues, but no specific joint swelling and normal range of motio n. She is protective of right shoulder, which has had the recent surgery. NEUROLOGICAL: She is jesse rt and appropriate. Answers questions appropriately. No significant sensory issues. No weakness. LABORATORY DATA: CBC is unremarkable. Chemistry on admission was relatively unremarkable. Normal k idney and liver function. C reactive protein is less than 5.0, TSH is 4.85. ROSARIO is pending. PCR te st is pending. Other autoimmune tests ordered as an outpatient recently are pending including ROSARIO st udies, ANCA studies, immunoglobulin levels. Chest x-ray was normal on admission. ASSESSMENT: 1. Severe headache associated with fevers, myalgia, arthralgia, intermittent rash, frequent oral ulc erations. I am concerned that her worsening symptoms in the last 2-3 days is related to a reaction t o the immunoglobulins given this past week. It appears that her fevers have subsided, although the h eadache remains quite severe, IVIG can definitely be associated with conditions such as aseptic menin gitis, fevers, joint pains, and various rashes. Rash can be very nonspecific associated with this co ndition. In regard to autoimmune disease, prior evaluations for connective tissue diseases and vascu litic disorders have been negative. She has had recent testing, but those results are still pending. Interpretation of the antibodies can be difficult sometimes with her frequent administration of imm unoglobulins. She has had an infectious disease evaluation. She has been receiving treatment for he rpes simplex virus, although this does not seem to be improving her symptoms. I think it is unlikely that she has a bacterial meningitis in spite of her severe pain and headache, but I will defer this to both her hospitalist, physician and Infectious Disease physicians. She may have an aseptic mening itis as noted above. If there is a low suspicion for an infectious process, I recommend starting pre dnisone 40 mg daily for the next 5 days as this may help to improve many of her symptoms. I will hav e a discussion with her hospital technician regarding ongoing therapy with IVIG as I do feel that this may b e a significant contributor to her present symptoms. At this time, await further laboratory studies that were obtained yesterday. No specific recommendations for further lab tests unless a lumbar punc ture is needed to assess for infectious causes for the headache and neck pain. 2. Common variable immunodeficiency. She has been treated with immunoglobulins at least for the las t 5-6 years with significant decreased in her recurrent infections. Ideally, she would continue with this therapy, although I am concerned about adverse effects related to the repeated infusions. 3. Rash. Patient has had variable rashes over the last 3-4 years, which has remained poorly explain ed despite Dermatology evaluation. 4. Right shoulder pain. She continues to have significant pain after her orthopedic surgery earlier this year. This was complicated by significant inflammation in the shoulder. At one time, steroid injection given provided some relief. Thank you very much for this consultation. /[id number]/MODL
[2017-07-03] MEDS: ENOXAPARIN 40 MG/0.4 ML SYR SC SCH (10:15)
--- NOTE | 2017-07-03 10:46 | PDMN ---
Medical Necessity Medical necessity: Patient meets INPT criteria per [facility] Musculoskeletal Disease GRG (worsening acute inflammatory syndrome (rash/fever, arthralgias, FIGUEROA) w/ hx of chronic IgG infusions for autoimmune disorder; anticipated LOS > 2 midnights for IV acyclovir, pain/nausea mgmt., rheum/allergy/ID consults.)
[2017-07-03] MEDS: SUMAtriptan 25 MG TAB PO PRN ×2 (11:19→21:05)
[2017-07-03] MEDS: busPIRone 15 MG TAB PO SCH ×2 (11:20→21:01)
[2017-07-03] MEDS: HYDROmorphONE/DILAUDID 2 MG TAB PO PRN (11:36)
[2017-07-03 13:10] LABS: APTT 30.4 SEC (23.0-38.0)
[2017-07-03 13:20] LABS: PROTIME(PATIENT) 13.1 SEC (12.0-15.0)
[2017-07-03] MEDS ORDERED: predniSONE 20 MG TAB PO SCH (14:15)
[2017-07-03] MEDS ORDERED: LIDOCAINE 1% 300 MG/30 ML SDV ONE (15:32)
--- NOTE | 2017-07-03 16:18 | ASMTCMCOM ---
CM Note CM Note Notes: Pt has been admitted with fever, pain, and mucosal ulcerations. She has a hx of autoimmune illnesses. She is the of a [facility] ortho MD. Consults from rheumatology, allergy and ID have been requested. CM will follow for any d/c needs. Date Signed: 07/03/2017 04:17 PM Electronically Signed By:TAHIRA Licea
--- NOTE | 2017-07-03 16:23 | SOAPPROG ---
SOAP Progress Note Assessment/Plan: Assessment: please see consult note from the same date Plan: Objective: Vital Signs Temp Pulse Resp BP Pulse Ox 37.1 C 62 16 110/71 88 L 07/03/17 15:13 07/03/17 15:13 07/03/17 15:13 07/03/17 15:13 07/03/17 15:13 Laboratory Results 07/03/17 04:49 07/03/17 04:49 07/02/17 07/03/17 07/04/17 05:59 05:59 05:59 Intake Total 500 Balance 500 PT 13.1 SEC (12.0-15.0) 07/03/17 10:16 INR 1.00 (0.83-1.16) 07/03/17 10:16 ICD10 Worksheet Patient Problems: Problems Problem Status Onset Aseptic meningitis Acute Rash Acute
[2017-07-03 17:43] LABS: PROTEIN, CSF 44 mg/dL (12-60)
--- NOTE | 2017-07-03 18:06 | GCON ---
[f rep st] CONSULTATION INFECTIOUS DISEASE CONSULTATION REFERRING PHYSICIAN: Gelacio Frazier MD REASON FOR REFERRAL: Severe headache and meningeal signs after IVIG. HISTORY OF PRESENT ILLNESS: Patient is a 51-year-old female with a very complex medical history. Th e patient had multiple episodic, frequent infections and was diagnosed with hypogammaglobulinemia sulema roximately 6 years ago. Since then, she has been on monthly IVIG replacement. The patient notes pablo t approximately over the past 4-6 weeks, she has been feeling generally poorly. She also has a histo ry of oral herpes simplex, which she treats with daily acyclovir 400 mg. She has been continuing on this treatment. She related that in the 2 weeks prior to admission, she developed ulcers on the insi de aspect of her lower lip, her tongue, as well as on the inside of her right eyelid. She also noted ulcerations and drainage from her nasal and nostril mucosa. She had seen her terrazzo helper and immunolo gist as well as an leg assembler. The leg assembler was concerned that this represented herpes s implex infection. She increased her acyclovir dosing to 5 times daily. The ulcers eventually allevi ated. She went in 2 days prior to admission for IVIG infusion. Approximately an hour after the infu eden, as she was driving home, her symptoms of headache and more acute onset of illness occurred. Sophia romero was febrile that evening. She was directed through the emergency room yesterday for admission due to worsening severe headache and neck stiffness. The concerns of HSV disseminated disease induced us to give her acyclovir intravenously q.8 hours. She has been on that since admission. This morning, she is resting in her hospital bed. Her headache and neck stiffness have not improved. She has mar ked photophobia. Her temperature curve, however, is benign. No evidence of fevers since admission. PAST MEDICAL HISTORY: 1. Acute pancreatitis. 2. Closed head injury. 3. Hypothyroidism. 4. Chronic sinusitis. 5. A variety of autoimmune diagnoses. PAST SURGICAL HISTORY: 1. Status post cholecystectomy. 2. Status post appendectomy. 3. Status post section. 4. Status post abdominoplasty and breast augmentation. ANTIBIOTICS: Acyclovir. ALLERGIES: The patient has seasonal allergies. SOCIAL HISTORY: Patient is to an orthopedic surgeon. The patient manages a retail store. N o significant tobacco or drug use. FAMILY HISTORY: Reviewed and significantly positive for autoimmune disease in her father's side. REVIEW OF SYSTEMS: Other than that detailed above in the history of present illness, comprehensive 1 0-system review is negative. PHYSICAL EXAMINATION: VITAL SIGNS: Temperature maximum 37.2, temperature current is 37.1, heart rat e is 62, respiratory rate is 16, blood pressure is 110/71. GENERAL: The patient is a well-formed, w ell-nourished female in no acute distress. She is mildly toxic in appearance. She is alert and orie nted x3. She is pleasant in demeanor. HEENT: Normocephalic for age. Atraumatic. No scleral icter us. No oral lesion or drainage from the nares. Eyes: Lids and conjunctivae are within normal limit s. Pupils are equal and round bilaterally. NECK: Supple. Mild meningismus and stiffness. HEART: Regular rate and rhythm. No murmur, rub, or gallop noted. LUNGS: Clear to auscultation bilaterall y with good effort. SKIN: Warm and dry to the touch. No rash or lesion noted. ABDOMEN: Soft, non tender. No masses. MUSCULOSKELETAL: No other muscle belly tenderness is noted. No joint line effu eden or arthritis seen. NEURO: Cranial nerves 2-12 seem to be intact. Peripheral sensation seems i ntact in extremities. LABORATORY DATA: Patient has a CBC dated 07/03/2017, which shows a white blood cell count of 5.4, he moglobin of 13.6, hematocrit 41.4, platelet count of 234, differential is 36% segmented neutrophils, 53% lymphocytes. Serum chemistries dated 07/03/2017, show sodium 140, potassium 4.1, chloride 108, b icarbonate 21, BUN of 17, creatinine 0.7. AST is 26, ALT is 33. Thyroid-stimulating hormone is mild ly elevated at 4.85. ROSARIO screen is pending. Herpes simplex DNA PCR from the blood is also pending. MICROBIOLOGIC DATA: No current samples. ASSESSMENT: Probably aseptic meningitis. I do not believe this is likely due to herpes simplex viru s. I suspect instead it is secondary to effects of the IVIG infusion. However, the preceding ulcera tions on her lips, nasal mucosa and eyelid harken to a possible autoimmune diagnosis, such as Behcet' s disease. The patient has been evaluated by Dr. Diez in Rheumatology. Prior to initiating any a ntiinflammatories or steroids, I think given the concern of herpes simplex virus, we should evaluate the spinal fluid as well as blood for presence of herpes simplex prior to high dose steroid therapy i nitiation. Will follow up on results of cell count, opening pressure of this afternoon. Will discus s with Hospitalist and Personalized Living Manager Nurse about pharmacologic therapy following this. PLAN: 1. Continue acyclovir empirically. 2. Follow up on CSF studies. 3. Follow clinical course. /[id number]/MODL
[2017-07-03 18:11] LABS: CSF APPEARANCE CLEAR (CLEAR); CSF COLOR COLORLESS (COLORLESS); CSF SUPERNATANT COLORLESS (COLORLESS); WBC, CSF 69 /mm3 (0-5)
[2017-07-03] MEDS: HYDROmorphONE/DILAUDID 1 MG/ML INJ IVP PRN ×2 (18:22→21:00)
--- NOTE | 2017-07-03 18:39 | HOSPPROG ---
Hospitalist Progress Note Assessment/Plan: Assessment: 51-year-old female presents with acute facial rash, mucosal ulcerations, neck pain and headache, concerning for aseptic meningitis as response to IVIG therapy Plan: 1. Suspected aseptic meningitis. Acute, new problem this provider, further workup indicated. Evidenced by severe neck pain exacerbated by flexion and rotational movement, severe headache, with onset after receiving IVIG with facial rash and perioral lesions on day of presentation, now resolved. -LP performed today, normal protein level, elevated white blood cells, consistent with aseptic meningitis -HSV sent from CSF, serum -appreciate Infectious Disease consultation by Dr. Dmitri Moyer -patient being continued on IV acyclovir per Infectious Disease, will continue at present time, pending PCR study results -discussed with Dr. Diez, patient's excel vba developer, he has recommended burst of prednisone 40 mg and gauge effect -provide supportive management with Dilaudid, patient's pain escalating this afternoon, ordering IV Dilaudid as needed, as well as Imitrex given benefit overnight 2. Autoimmune condition. The patient has a chronic autoimmune disorder which is currently under treatment and managed with Dr. John Diez, the patient has recently received IVIG and she appears to have had a reaction that is at least temporarily associated -recommended the patient follow up with Dr. Diez closely after this hospitalization -ROSARIO has been sent, currently pending -chest x-ray without any infiltrates, personally interpreted -interestingly enough, her CRP, white blood cell counts are both completely normal, suggesting that rather than experiencing an active autoimmune process, the patient has likely more focally and transiently experienced acute reaction to immunoglobulin which manifested as her rash and transient lesions as well as the inflammation producing her aseptic meningitis Diet. Regular as tolerated next prophylaxis. High risk patient, given immobility, Lovenox 40 Code. Full Disposition. Anticipated discharge is 07/04/2017, pending stabilization of pain as outlined above. Subjective: worsening headache/neck pain this AM, and escalating this PM Objective: Vital Signs Temp Pulse Resp BP Pulse Ox 37.1 C 62 16 110/71 88 L 07/03/17 15:13 07/03/17 15:13 07/03/17 15:13 07/03/17 15:13 07/03/17 15:13 Microbiology 07/03/17 16:55 Gram Stain - Final Cerebral Spinal Fluid Laboratory Results 07/03/17 04:49 07/03/17 04:49 07/02/17 07/03/17 07/04/17 05:59 05:59 05:59 Intake Total 500 500 Balance 500 500 PT 13.1 SEC (12.0-15.0) 07/03/17 10:16 INR 1.00 (0.83-1.16) 07/03/17 10:16 - Pending Discharge Pending Discharge Within 24 Hours: Yes Pending Discharge Date: 07/04/17 Pending Discharge Time: 11:00 - Physical Exam Constitutional: appears nourished, uncomfortable, No no apparent distress ( moderately distressed), No not in pain Ears, Nose, Mouth, Throat: moist mucous membranes, hearing normal, ears appear normal, no oral mucosal ulcers, No oral thrush Cardiovascular: regular rate and rhythym, no murmur, rub, or gallop Respiratory: no respiratory distress, no rales or rhonchi, clear to auscultation Gastrointestinal: normoactive bowel sounds, soft, non-tender abdomen, no palpable masses Skin: other (no rashes over the palms, legs, abd, face) Neurologic: AAOx3, sensation intact bilaterally Psychiatric: not encephalopathic, thought process linear, anxious, No agitated ICD10 Worksheet Patient Problems: Problems Problem Status Onset Aseptic meningitis Acute
--- NOTE | 2017-07-03 20:12 | GCON ---
[f rep st] CONSULTATION ALLERGY AND IMMUNOLOGY CONSULTATION REASON FOR CONSULTATION: History of immunodeficiency. HISTORY OF PRESENT ILLNESS: The patient is a 51-year-old, with a history of CVID and HSV, who is on intravenous immunoglobulin and received her last infusion on June 30. Fifteen minutes following completion of her infusion, she developed symptoms of a severe headache, chills, painful rash and a temperature to 101.2. She was instructed to go to the emergency room, which she did, on that evening. She was then seen in clinic on July 02, at which time she continued to have symptoms of a rash, myalgias, muscle aching, and headache. Also over the past month she has had developed an oral ulcerations, which she attributed to her recurrent oral HSV, and then following a facial laser procedure, had worsening of her symptoms and swelling around the eyelid area and was seen by Ophthalmology, and it was felt that she likely had ocular HSV. No PCR was done at that time. At that time, her acyclovir was increased and her symptoms resolved. 3 days prior to admission, she decreased her acyclovir back down to her typical dose. Yesterday, she felt that she was having recurrence of eye irritation and was concerned that she was having recurrence of her herpes outbreak. The rash was continuing and she also had a severe headache and neck discomfort. Additionally, she reports that she had shoulder surgery in February, which has been quite painful and swollen. REVIEW OF SYSTEMS: GENERAL: Positive for fevers, rash. MUSCULOSKELETAL: Positive for shoulder pain, myalgias. DERMATOLOGIC: Notable for a recurrent rash in the malar area, chest, and also on the palms of her hands. NEUROLOGIC: History of pseudotumor cerebri. Positive for headache. PAST MEDICAL HISTORY: Pseudotumor cerebri, scleritis, CVID/IgG sublcass deficiency, depression, anxiety, hypothyroidism, toxic shock syndrome as a teen. FAMILY HISTORY: Father had psoriasis. Mother, osteoarthritis. Her son has recurrent infections. Uncle, rheumatoid arthritis. SOCIAL HISTORY: She is . MEDICATIONS: Inpatient: Acyclovir 750 mg IV q.8 hours, Xanax 1 mg p.r.n., Adderall 10 mg p.o. p.r.n., Buspar 10 mg p.o. b.i.d., Lovenox 40 mg subcu daily , Dilaudid 2 to 4 mg p.o. q.4 hours p.r.n., Toradol 50 mg IV q.8 hours, Lamictal 150 mg p.o. daily, Synthroid 112 mcg daily, Cytomel 5 mg daily, lorazepam 1 mg p.o. q.6 hours p.r.n., melatonin 3 mg p.o. q.h.s., Zofran 4 mg IV q.4 hours p.r.n., prednisone 40 mg daily, progesterone 200 mg q.h.s., propranolol 20 mg p.o. t.i.d. p.r.n., Imitrex 25 mg p.o. q.6 hours p.r.n. PHYSICAL EXAMINATION: VITAL SIGNS: Blood pressure 110/71, heart rate 62, temperature 37.1, 88% on room air, heart rate 62. GENERAL: In room with the lights out, cloth over her eyes. DERMATOLOGIC: Mild rash on cheeks, although unable to fully assess due to patient discomfort. Lights were kept off in the room. RESPIRATORY: Normal effort. NEUROLOGIC: Oriented, appropriate. Able to answer questions. LABORATORY DATA: CBC: WBC is 5.35, hemoglobin 13.6, hematocrit 41.4, platelets 234. Chemistry: Sodium 140, potassium 4.1, BUN 17, creatinine 0.7, glucose 108. TSH 4.8. Immunology: ROSARIO pending. Serology: Herpes simplex PCR pending. 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 In regard to her acute symptom complex of headache and rash, it is quite possible this is a IVIG infusion reaction, although would like to rule out disseminated HSV. Suspect she may have an underlying autoimmune condition contributing to her recurrent rash and oral ulcerations. RECOMMENDATIONS: 1. Agree with current plan, she is having a lumbar puncture today 2. For treatment of a potential infusion reaction nsaids are typically helpful and prednisone would also be helpful as long as this is considered reasonable from an ID standpoint. Appreciate Infectious Disease and Rheumatology input. 3. We will reevaluate her IVIG therapy as an outpatient, depending on the results of her inpatient evaluation. /[id number]/MODL MTDD
[2017-07-03] MEDS: PROGESTERONE,MICR 100 MG CAP PO SCH (21:00)
[2017-07-03] MEDS: MELATONIN 3 MG TAB PO SCH (21:01)
[2017-07-04] MEDS: HYDROmorphONE/DILAUDID 1 MG/ML INJ IVP PRN ×6 (01:58→23:50)
[2017-07-04] MEDS: KETOROLAC 15 MG/1 ML SDV IVP PRN ×2 (01:58→09:59)
[2017-07-04] MEDS: HYDROmorphONE/DILAUDID 2 MG TAB PO PRN (05:43)
[2017-07-04] MEDS: ACYCLOVIR 750 MG in D5W 250 ML IV SCH ×3 (05:44→20:50)
[2017-07-04] MEDS: SUMAtriptan 25 MG TAB PO PRN (05:44)
[2017-07-04] MEDS: LEVOTHYROXINE 112 MCG TAB PO SCH (05:44)
[2017-07-04] MEDS: busPIRone 15 MG TAB PO SCH ×2 (08:18→20:50)
[2017-07-04] MEDS: LIOTHYRONINE SODIUM 5 MCG TAB PO SCH (08:18)
[2017-07-04] MEDS: lamoTRIgine 100 MG TAB PO SCH (08:18)
[2017-07-04] MEDS: ENOXAPARIN 40 MG/0.4 ML SYR SC SCH (08:18)
[2017-07-04] MEDS ORDERED: POLYETHYLENE GLYCOL 3350 17 GM PKT PO PRN (09:44)
[2017-07-04] MEDS ORDERED: LACTULOSE 20 GM/30 ML UDCUP PO PRN (09:44)
[2017-07-04] MEDS ORDERED: BISACODYL 10 MG SUPP PR PRN (09:44)
[2017-07-04] MEDS: MAGNESIUM HYDROXIDE 30 ML UDCUP PO PRN (09:59)
--- NOTE | 2017-07-04 12:45 | ASMTCMCOM ---
CM Note CM Note Notes: Reviewed chart and d/w RN. Anticipate dc home w/family when med stable. CM avial if needs arise. Date Signed: 07/04/2017 12:45 PM Electronically Signed By:Lisa Connor RN
[2017-07-04] MEDS: ONDANSETRON 4 MG/2 ML VIAL IVP PRN ×2 (13:32→20:49)
[2017-07-04] MEDS ORDERED: oxyCODONE IR 5 MG TAB PO PRN (13:38)
--- NOTE | 2017-07-04 13:46 | HOSPPROG ---
Hospitalist Progress Note Assessment/Plan: 51-year-old presents with severe headache associated with some mucosal ulcerations and rash soon after receiving IVIG therapy for chronic variable immune deficiency. # aseptic meningitis with ongoing headache pain. She had some relief yesterday after receiving 1 dose of prednisone. Unclear if improved pain was secondary to the prednisone or treatment for potential HSV or resolution. Her headache is starting to come back at this time. * Awaiting HSV PCR, will continue acyclovir * Pain control with Toradol and oral or IV narcotics as needed. Once she is eating we can transition to ibuprofen * Recent lumbar puncture possibly worsening headache pain. # CV ID, followed by Dr. Diez and receiving monthly IVIG. Aseptic meningitis possible reaction to this, further treatment would depend on Dr. Diez recommendations post hospitalization. # DVT prophylaxis on Lovenox # elevated TSH likely euthyroid sick thyroid syndrome due to her acute illness Subjective: Patient new to me and chart reviewed. Discussed with Dr. Moyer. She felt pretty good this morning but is starting to have worsening headache pain and nausea. Objective: Vital Signs Temp Pulse Resp BP Pulse Ox 37.0 C 66 16 108/67 90 L 07/04/17 11:53 07/04/17 11:53 07/04/17 11:53 07/04/17 11:53 07/04/17 11:53 Microbiology 07/03/17 16:55 Gram Stain - Final Cerebral Spinal Fluid Laboratory Results 07/03/17 04:49 07/03/17 04:49 07/03/17 07/04/17 07/05/17 05:59 05:59 05:59 Intake Total 500 500 Balance 500 500 PT 13.1 SEC (12.0-15.0) 07/03/17 10:16 INR 1.00 (0.83-1.16) 07/03/17 10:16 - Physical Exam Constitutional: no apparent distress Eyes: PERRL, EOMI Ears, Nose, Mouth, Throat: moist mucous membranes Cardiovascular: regular rate and rhythym, no murmur, rub, or gallop Respiratory: no respiratory distress, no rales or rhonchi, clear to auscultation Gastrointestinal: soft, non-tender abdomen Genitourinary: no bladder fullness Skin: warm Musculoskeletal: full muscle strength, no muscle tenderness Neurologic: AAOx3, No facial droop Psychiatric: interacting appropriately, not anxious ICD10 Worksheet Patient Problems: Problems Problem Status Onset Aseptic meningitis Acute Rash Acute
--- NOTE | 2017-07-04 14:30 | PCMIDPN ---
Assessment/Plan: Assessment: Aseptic meningitis-unclear cause. 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 There was some concern prior to this admission that she may have been manifesting disseminated HSV given lesions on the inside of her right eyelid as well as the inside of her lip, tongue and nostril mucosa. Suspect this is unlikely. HSV from the blood stream PCR has returned today is negative. Spinal fluid PCR is pending. Will continue IV acyclovir for now. Patient did have improvement in her headache yesterday evening, but she did get a single dose of 40 mg of prednisone which may be contributing to the improvement. Will continue to observe. No more steroid at this point until HSV central nervous system disease is ruled out. Plan: 1. Continue IV acyclovir. 2. Follow up on CSF HSV PCR. 3. Follow clinical course and symptoms. 07/04/17 16:29 Subjective: Patient is resting in her hospital room. She is looking moderately improved over yesterday. She is able to tolerate more light. She states however that she feels that the headache may be coming back. No fevers or chills. Objective: Acyclovir # 2 Vital Signs Temp Pulse Resp BP Pulse Ox 37.0 C 66 16 108/67 90 L 07/04/17 11:53 07/04/17 11:53 07/04/17 11:53 07/04/17 11:53 07/04/17 11:53 Microbiology 07/03/17 16:55 Gram Stain - Final Cerebral Spinal Fluid Laboratory Results 07/03/17 04:49 07/03/17 04:49 07/03/17 07/04/17 07/05/17 05:59 05:59 05:59 Intake Total 500 500 Balance 500 500 C-Reactive Protein < 5.0 mg/L (<10.0) 07/02/17 14:06 - Physical Exam General Appearance: WD/WN, alert, no apparent distress Respiratory: lungs clear, normal breath sounds, No respiratory distress Cardiac/Chest: regular rate, rhythm, No tachycardia Skin: normal color, warm/dry, No rash Neuro/Psych: alert, normal mood/affect, oriented x 3 ICD10 Worksheet Patient Problems: Problems Problem Status Onset Aseptic meningitis Acute Rash Acute
[2017-07-04] MEDS ORDERED: PROMETHAZINE HCL 25 MG/ML INJ ONE (16:49)
[2017-07-04] MEDS: KETOROLAC 15 MG/1 ML SDV IVP SCH ×2 (16:53→23:50)
[2017-07-04] MEDS ORDERED: PROMETHAZINE HCL 25 MG/ML INJ IV PRN (17:22)
[2017-07-04] MEDS: PROGESTERONE,MICR 100 MG CAP PO SCH (20:50)
[2017-07-04] MEDS: MELATONIN 3 MG TAB PO SCH (20:50)
[2017-07-04] MEDS: SENNOSIDES/DOCUSATE SODIUM TAB PO SCH (20:51)
[2017-07-05] MEDS: KETOROLAC 15 MG/1 ML SDV IVP SCH ×3 (05:14→17:46)
[2017-07-05] MEDS: ACYCLOVIR 750 MG in D5W 250 ML IV SCH ×2 (05:14→14:33)
[2017-07-05] MEDS: LEVOTHYROXINE 112 MCG TAB PO SCH (05:14)
[2017-07-05 05:48] LABS: % IMMATURE GRANULYOCYTES 0.7 % (0.0-1.1); ABSOLUTE IMMATURE GRANULOCYTES 0.06 10^3/uL (0.00-0.10); ADD DIFF? NO; ADD MORPH? NO; ADD SCAN? NO; ATYPICAL LYMPHOCYTE FLAG 0 (0-99); FRAGMENT RBC FLAG 0 (0-99); HEMATOCRIT 38.4 % (38.0-47.0); HEMOGLOBIN 12.9 g/dL (12.6-16.3); LEFT SHIFT FLG 0 (0-99); LIPEMIA HEMOLYSIS FLAG 80 (0-99); MEAN CELL HEMOGLOBIN CONCENTR. 33.6 g/dL (32.4-36.7); MEAN CELL VOLUME 95.3 fL (81.5-99.8); MEAN PLATELET VOLUME 8.8 fL (8.7-11.7); PLATELET CLUMPS FLAG 0 (0-99); PLATELET COUNT 221 10^3/uL (150-400); RED BLOOD CELL COUNT 4.03 10^6/uL (4.18-5.33); RED CELL DISTRIBUTION WIDTH 11.8 % (11.5-15.2)
[2017-07-05] MEDS ORDERED: TEMAZEPAM 15 MG CAP PO PRN (09:33)
--- NOTE | 2017-07-05 09:33 | HOSPPROG ---
Hospitalist Progress Note Assessment/Plan: 51-year-old presents with severe headache associated with some mucosal ulcerations and rash soon after receiving IVIG therapy for common variable immune deficiency. # aseptic meningitis with ongoing headache pain. She had some relief yesterday after receiving 1 dose of prednisone. Unclear if improved pain was secondary to the prednisone or treatment for potential HSV or resolution. This morning her headache is a 2/10 and she has low-level nausea. It was not controlled on oral medications yesterday and she required some IV meds. * Awaiting HSV PCR, will continue acyclovir * Pain control with Toradol and oral or IV narcotics as needed. Once she is eating we can transition to ibuprofen * Recent lumbar puncture possibly worsening headache pain. * Encouraged to use pain medications prior to a crisis she can try oral medications for this. # CVID, followed by Dr. Diez and receiving monthly IVIG. Aseptic meningitis possible reaction to this, further treatment would depend on Dr. Diez recommendations post hospitalization. # DVT prophylaxis on Lovenox # elevated TSH likely euthyroid sick thyroid syndrome due to her acute illness Subjective: Continues to complain of severe headache pain and nausea overnight. Had difficulty sleeping last night. Still awaiting serologies. Requiring IV medications still. Objective: Vital Signs Temp Pulse Resp BP Pulse Ox 36.9 C 61 16 96/59 L 92 07/05/17 07:23 07/05/17 07:23 07/05/17 07:23 07/05/17 07:23 07/05/17 07:23 Microbiology 07/03/17 16:55 Gram Stain - Final Cerebral Spinal Fluid Laboratory Results 07/05/17 05:39 07/03/17 04:49 07/04/17 07/05/17 07/06/17 05:59 05:59 05:59 Intake Total 500 315 Balance 500 315 PT 13.1 SEC (12.0-15.0) 07/03/17 10:16 INR 1.00 (0.83-1.16) 07/03/17 10:16 - Physical Exam Constitutional: uncomfortable Eyes: PERRL, anicteric sclera, EOMI Ears, Nose, Mouth, Throat: moist mucous membranes Cardiovascular: regular rate and rhythym, no murmur, rub, or gallop Respiratory: no respiratory distress, no rales or rhonchi, clear to auscultation Gastrointestinal: normoactive bowel sounds, soft, non-tender abdomen, no palpable masses Genitourinary: no bladder fullness, No biggs in urethra Skin: warm Musculoskeletal: full muscle strength Neurologic: AAOx3, No facial droop Psychiatric: interacting appropriately, not anxious ICD10 Worksheet Patient Problems: Problems Problem Status Onset Rash Acute Aseptic meningitis Acute
[2017-07-05] MEDS: SENNOSIDES/DOCUSATE SODIUM TAB PO SCH (10:44)
[2017-07-05] MEDS: busPIRone 15 MG TAB PO SCH (10:44)
[2017-07-05] MEDS: LIOTHYRONINE SODIUM 5 MCG TAB PO SCH (10:45)
[2017-07-05] MEDS: lamoTRIgine 100 MG TAB PO SCH (10:45)
[2017-07-05] MEDS: ENOXAPARIN 40 MG/0.4 ML SYR SC SCH (10:46)
[2017-07-05] MEDS: MAGNESIUM HYDROXIDE 30 ML UDCUP PO PRN (10:46)
[2017-07-05 11:04] VITALS: O2SAT 91
[2017-07-05 15:55] VITALS: BP 119/74; PULSE 78; RESP 12; TEMP 98.7
--- NOTE | 2017-07-05 16:16 | SOAPPROG ---
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 currently improved today. hsv pcr pending. Plan: - await hsv pcr from the [facility] - if cleared for prednisone, a reasonable taper for a presumed inufsion reaction would 40mg x 2 days, then 20mg x 3 days 10 x 2 days and then stop. However would also appreciate rheumatologies input on the duration of the taper for any potential autoimmune component to her symptom complex - she will follow up with our office w/in 1 week post discharge 07/05/17 16:11 Subjective: improved today. headache much better. does recur when stands up. rash present on chest. interested in being discharged. questions about her ivig infusions. Objective: Vital Signs Temp Pulse Resp BP Pulse Ox 37.1 C 78 12 119/74 91 L 07/05/17 15:54 07/05/17 15:54 07/05/17 15:54 07/05/17 15:54 07/05/17 15:54 Microbiology 07/03/17 16:55 Gram Stain - Final Cerebral Spinal Fluid Laboratory Results 07/05/17 05:39 07/03/17 04:49 07/04/17 07/05/17 07/06/17 05:59 05:59 05:59 Intake Total 500 315 Balance 500 315 PT 13.1 SEC (12.0-15.0) 07/03/17 10:16 INR 1.00 (0.83-1.16) 07/03/17 10:16 Gen- NAD Neuro- Alert, oriented, appropriate Derm- macular rash on left chest, no visible rash on cheeks - Time Spent With Patient Time Spent With Patient: 20 minutes one on one >50% of time spent counseling, discussing plan ICD10 Worksheet Patient Problems: Problems Problem Status Onset Rash Acute Aseptic meningitis Acute
--- NOTE | 2017-07-05 16:54 | PCMIDPN ---
Assessment/Plan: Assessment: Aseptic meningitis-unclear cause. 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 There was some concern prior to this admission that she may have been manifesting disseminated HSV given lesions on the inside of her right eyelid as well as the inside of her lip, tongue and nostril mucosa. Suspect this is unlikely. HSV from the blood stream PCR has returned today is negative. Spinal fluid PCR is pending. Will continue IV acyclovir for now. Patient's condition is improved since yesterday. No further steroid dose used. Spinal fluid PCR should be ready by the end of the day. If this is negative there is a potential that she could go home off all anti virals with just symptom management. Plan: 1. Continue IV acyclovir. 2. Follow up on CSF HSV PCR. 3. Follow clinical course and symptoms. 07/04/17 16:29 07/05/17 16:52 Subjective: Patient is resting in her hospital bed. She is much more comfortable appearing. No new complaints. Objective: Acyclovir #3 Vital Signs Temp Pulse Resp BP Pulse Ox 37.1 C 78 12 119/74 91 L 07/05/17 15:54 07/05/17 15:54 07/05/17 15:54 07/05/17 15:54 07/05/17 15:54 Microbiology 07/03/17 16:55 Gram Stain - Final Cerebral Spinal Fluid Laboratory Results 07/05/17 05:39 07/03/17 04:49 07/04/17 07/05/17 07/06/17 05:59 05:59 05:59 Intake Total 500 315 Balance 500 315 C-Reactive Protein < 5.0 mg/L (<10.0) 07/02/17 14:06 - Physical Exam General Appearance: WD/WN, alert, no apparent distress, non-toxic Respiratory: lungs clear, normal breath sounds, No respiratory distress Cardiac/Chest: regular rate, rhythm, No tachycardia Skin: normal color, warm/dry, No rash Neuro/Psych: alert, normal mood/affect, oriented x 3 ICD10 Worksheet Patient Problems: Problems Problem Status Onset Rash Acute Aseptic meningitis Acute
[2017-07-05 17:45] LABS: HSV 1 PCR, CSF Negative (Negative); HSV 2 PCR, CSF Negative (Negative)
--- NOTE | 2017-07-05 18:31 | PDDCSUM ---
Discharge Summary Discharge Summary: DISCHARGE SUMMARY FOLLOW-UP ITEMS: ROSARIO pending at time of discharge DATE OF ADMISSION: 07/02/2017 DATE OF DISCHARGE: 07/05/2017 DISCHARGE DIAGNOSES: 1. Aseptic meningitis 2. Acute IVIG reaction 3. Chronic common variable immunodeficiency 4. Suspected euthyroid sick syndrome CONSULTATIONS: Allergy by Dr. Bee Rodgers, infectious Disease by Dr. Dmitri Moyer, rheumatology Dr. John Diez PROCEDURES / IMAGING: Lumbar puncture CHIEF COMPLAINT: Acute rash, fever, headache, neck pain SUBJECTIVE: Patient is feeling well at time of discharge, she has full range of motion of her neck without any pain she is no longer photophobic PHYSICAL EXAM ON DISCHARGE: Systolic blood pressure 120, heart rate 80, satting well on room air, alert awake oriented x3, no photophobia, full range of motion of her neck without any pain, facial symmetry, pain level 0/10 LABS ON DISCHARGE: CSF hsv PCR negative, CSF protein 44, CSF white blood cell 69, CSF RBC 11, CSF lymphocyte count 65%, CSF neutrophils 10%, CSF glucose 49, TSH 4.85, creatinine 0.7, CRP completely normal HOSPITAL COURSE BY PROBLEM: The patient presented with subjective fever, neck pain, headache, photophobia, facial rash, suspected to be secondary to acute IVIG reaction resulting in aseptic meningitis in the setting of common variable immunodeficiency. The patient was evaluated with a lumbar puncture to rule out bacterial/HSV meningitis, given her immunocompromised state and recent, apparent HSV infection. Her HSV PCR was negative on CSF, she received IV acyclovir until this was effectively ruled out. We also held off on empiric steroids until we were able to rule out disseminated HSV. The patient required inpatient admission for pain management as well as IV antivirals in the setting of above. Her TSH was elevated w/o any recent symptoms of hypothyroidism, and outpatient Thyroid Function Test should be checked. Dr. John Diez saw the patient in consultation and he recommended prednisone [address] Bee Rodgers has recommended a rapid taper with immediate outpatient follow-up. Patient will be discharged with a prednisone taper as well as as needed Dilaudid and Zofran for any ongoing symptoms. Further discussion whether the patient should continue to receive IVIG will take place with her outpatient allergy and Rheumatology providers. DISCHARGE MEDICATIONS: Please see official discharge medication reconciliation sheet in chart , Dilaudid 2 mg as needed, 20 tabs prescribed, Zofran 4 mg as needed, 40 tablets prescribed, rapid prednisone taper with 40 mg x2 days, 20 mg x3 days, 10 mg x2 days. DISCHARGE INSTRUCTIONS: Please follow up with Dr. Bee Rodgers within 1 week of discharge, sooner if experiencing any side effects of prednisone.
== END 2017-07-05 18:33 | disposition home or self-care (01) | DRG 98 ==
LOC: F3E 17:44
PROVIDERS: ADMIT Internal Medicine; ATTEND Internal Medicine
PROC: B01B1ZZ Fluoroscopy of Spinal Cord using Low Osmolar Contrast (ICD-10-PCS; principal; 2017-07-03)
PROC: 009U3ZX Drainage of Spinal Canal, Percutaneous Approach, Diagnostic (ICD-10-PCS; principal; 2017-07-03)
DX: G03.0 Nonpyogenic meningitis (principal); T37.5X5A Adverse effect of antiviral drugs, initial encounter; D80.3 Selective deficiency of immunoglobulin G [IgG] subclasses; D83.9 Common variable immunodeficiency, unspecified; E07.81 Sick-euthyroid syndrome; E03.9 Hypothyroidism, unspecified; R51 Headache; R21 Rash and other nonspecific skin eruption; M79.1 Myalgia; M25.511 Pain in right shoulder; F41.8 Other specified anxiety disorders; J32.9 Chronic sinusitis, unspecified; Z87.442 Personal history of urinary calculi; Z87.820 Personal history of traumatic brain injury; Z79.899 Other long term (current) drug therapy; Z86.19 Personal history of other infectious and parasitic diseases
CPT/HCPCS: 87798-90; 96374; J0133; J1170; J1650; J1885; J2405; J2550

== ENCOUNTER → 2017-10-22 | Outpatient (CLI) | payer OTHER | LOC: FIMAGING 12:28 | PROVIDERS: ATTEND Physician Assistant Medical | DX: Z12.31 Encounter for screening mammogram for malignant neoplasm of breast (principal) ==

== ENCOUNTER → 2018-12-22 | Outpatient (CLI) | payer OTHER | LOC: FIMAGING 09:50 | PROVIDERS: ATTEND Allergy & Immunology Allergy | DX: Z12.31 Encounter for screening mammogram for malignant neoplasm of breast (principal); K83.8 Other specified diseases of biliary tract | CPT/HCPCS: A9585 ==